=== PATIENT | male | born 1970 | race African-American/Black ===

== ENCOUNTER 2022-11-20 16:01 | Emergency (ER) | payer OTHER ==
[~2022-11-20] VITALS: Ht 182.9 cm; Wt 98.2 kg
[2022-11-20] MEDS ORDERED: ATOR40TA28 PO (16:21)
[2022-11-20] MEDS ORDERED: LEVO50 PO (16:21)
[2022-11-20] MEDS ORDERED: METO25 PO (16:21)
[2022-11-20] MEDS ORDERED: HYDR25TA2 PO (16:21)
[2022-11-20] MEDS ORDERED: ASPI-1450 PO (16:21)
[2022-11-20] MEDS ORDERED: AMIO200T68 PO (16:21)
[2022-11-20] MEDS ORDERED: LISI-894 PO (16:21)
[2022-11-20] MEDS ORDERED: OMEP20 PO (16:21)
[2022-11-20] MEDS ORDERED: METF750T57 PO (16:21)
[2022-11-20] MEDS ORDERED: INSLAN SQ (16:21)
[2022-11-20] MEDS ORDERED: EMPA10TA3 PO (16:21)
[2022-11-20 16:32] LABS: GLUCOSE,POINT OF CARE 214 MG/DL (70-110)
[2022-11-20 16:52] LABS: APPEARANCE,URINE CLEAR (CLEAR); BILIRUBIN,URINE NEGATIVE (NEGATIVE); GLUCOSE, URINE (UA) >=1000 mg/dL (NEGATIVE); KETONES,URINE NEGATIVE (NEGATIVE); LEUKOCYTE ESTERASE ,URINE NEGATIVE (NEGATIVE); NITRATE,URINE NEGATIVE (NEGATIVE); OCCULT BLOOD,URINE LARGE (NEGATIVE); PROTEIN,URINE NEGATIVE (NEGATIVE); SPECIFIC GRAVITIY, URINE 1.021 (1.003-1.030); UROBILINOGEN,URINE <=1.0 mg/dL (<=1.0)
[2022-11-20 17:16] LABS: BASOPHILS % (AUTO) 0.9 % (0.0-2.0); EOSINOPHILS % (AUTO) 3.7 % (1.0-6.0); HEMATOCRIT 45.2 % (41-53); HEMOGLOBIN 14.3 g/dL (13.5-17.5); LYMPHOCYTES # (AUTO) 1.4 K/uL (1.0-4.8); MEAN CORPUSCULAR HEMOGLOBIN 25.6 pg (26.0-34.0); MEAN CORPUSCULAR HGB CONC 31.5 G/dL (31.0-37.0); MEAN CORPUSCULAR VOLUME 81 fL (80-100); MONOCYTES # (AUTO) 0.4 K/uL (0.1-1.0); MONOCYTES % (AUTO) 7.6 % (2.0-9.0); NEUTROPHILS # (AUTO) 3.4 K/uL (1.8-7.7); NEUTROPHILS % (AUTO) 62.8 % (40.0-70.0); PLATELET COUNT (AUTO) 168 K/uL (150-450); RED BLOOD CELL COUNT(AUTO) 5.56 MIL/uL (4.50-5.90); RED CELL DISTRIBUTION WIDTH 16.1 % (11.5-14.5)
[2022-11-20 17:26] LABS: CREATININE 1.82 mg/dL (0.60-1.30); POTASSIUM 4.3 mmol/L (3.5-5.1)
[2022-11-20 17:27] LABS: RBC,URINE 26-50 /HPF (0-2)
[2022-11-20 17:28] LABS: BACTERIA,URINE None Seen /HPF (None Seen); WBC,URINE 0-2 /HPF (0-5)
[2022-11-20 17:32] LABS: ALBUMIN 3.7 g/dL (3.4-5.0); BILIRUBIN,TOTAL 0.6 mg/dL (0.1-1.0); TOTAL PROTEIN, SERUM 7.4 g/dL (6.4-8.2)
[2022-11-20 17:46] VITALS: BP 124/75
== END 2022-11-20 20:10 | disposition home or self-care (01) ==
LOC: EMS 16:01
DX: R31.9 Hematuria, unspecified (principal); N28.9 Disorder of kidney and ureter, unspecified; E11.9 Type 2 diabetes mellitus without complications; K21.9 Gastro-esophageal reflux disease without esophagitis; E78.00 Pure hypercholesterolemia, unspecified; I10 Essential (primary) hypertension; I51.9 Heart disease, unspecified; G89.29 Other chronic pain; Z87.442 Personal history of urinary calculi
CPT/HCPCS: 74176; 80053; 81001; 82962; 85025; 99284